=== PATIENT | male | born 1965 | race African-American/Black ===

== ENCOUNTER 2024-03-11 09:01 | Emergency (ER) | payer SELFPAY ==
[~2024-03-11] VITALS: Ht 167.6 cm; Wt 62.0 kg
[2024-03-11 09:05] VITALS: TEMP 96.8
[2024-03-11] MEDS ORDERED: Tenecteplase 50 MG/10 ML VIAL (after reconstitution) IV ONE (09:15)
[2024-03-11] MEDS ORDERED: NS 1,000 ML IV ONE (09:19)
[2024-03-11] MEDS ORDERED: Heparin 5,000 UNITS/ML 1 ML VIAL IV ONE (09:30)
[2024-03-11] MEDS ORDERED: Heparin 5,000 UNITS/ML 1 ML VIAL IV PRN (09:30)
[2024-03-11] MEDS ORDERED: Heparin/D5W 250 ML IV SCH (09:30)
[2024-03-11] MEDS ORDERED: Clopidogrel 300 MG DOSE (75 mg x 4 tabs) PO ONE (09:30)
[2024-03-11 09:33] LABS: BASO # 0.1 K/mm3 (0.0-0.2); BASO % 0.7 % (0.0-2.0); EOS % 0.2 % (0.0-4.0); GRAN % 54.2 % (42.2-75.2); HEMATOCRIT 40.3 % (42.0-52.0); HEMOGLOBIN 13.9 g/dl (13.5-18.0); LYMPH # 3.3 K/mm3 (1.2-3.4); LYMPH % 36.3 % (20.0-51.0); MEAN CELL VOLUME 96 fl (80.0-100.0); MEAN CORPUSCULAR HEMOGLOBIN 33 pg (27-31); MEAN CORPUSCULAR HGB CONC 35 g/dl (33.0-37.0); MEAN PLATELET VOLUME 9.5 fl (7.4-10.4); MONO # 0.8 K/mm3 (0.1-0.6); MONO % 8.4 % (1.7-9.3); PLATELET COUNT 262 K/mm3 (130-400); RED BLOOD COUNT 4.21 M/mm3 (4.20-5.60); REDCELL DISTRIBUTION WIDTH-CV 14.6 % (11.5-14.5)
[2024-03-11 09:43] LABS: ALBUMIN 4.1 g/dL (3.4-4.8); BILIRUBIN,TOTAL 0.5 mg/dL (0.2-1.2); CALCIUM 8.8 mg/dL (8.4-10.2); CREATININE, serum 0.71 mg/dL (0.72-1.25); POTASSIUM 4.2 mEq/L (3.5-4.5); TOTAL PROTEIN 7.5 g/dl (6.2-8.1)
[2024-03-11 09:49] LABS: TROPONIN-I 0.014 ng/mL (0.00-0.033)
[2024-03-11 10:10] VITALS: BP 125/73; PULSE 75
== END 2024-03-11 10:10 | disposition short-term general hospital (02) ==
LOC: COL.ER 09:01
PROVIDERS: Personal Emergency Response Attendant
DX: I21.9 Acute myocardial infarction, unspecified (principal)
CPT/HCPCS: J1644; J3101; J7030